=== PATIENT | female | born 1980 | race Caucasian/White ===

== ENCOUNTER 2023-04-22 10:16 | Outpatient (OUT) | payer MEDICAID, SELFPAY ==
--- NOTE | 2023-04-22 10:45 | US_ITS ---
The [address] [address] Patient Name: CARLITOS SILVA MRN: [id number] date: 1980 Sex: F Assigned Patient Location: [facility] Current Patient Location: [facility] Accession/Order Number: [id number] Exam Date: 04/22/2023 10:47 Report Date: 04/22/2023 12:01 At the request of: JUANCARLOS THAKUR Procedure: US OB transvaginal EXAMINATION: US OB transvaginal HISTORY: MISSED MENSES COMPARISON: No relevant comparison available. FINDINGS: GESTATIONAL SAC: Present and normal appearing. YOLK SAC: Absent. POLE: Present and normal appearing. CARDIAC: Present. UTERUS: Contains a 2.1 x 1.8 x 1.7 cm structure within the posterior wall with peripheral hyperechogenicity; nonspecific but suspected to represent a rim calcified leiomyoma. OVARIES: Right: Normal. Left: Not seen. CERVIX: 5.4 cm in length and closed. CUL-DE-SAC: Normal. OTHER: None. AGE BY LMP: 13 weeks 0 days MARQUISE BY LMP: 10/28/2023 AGE BY US CRL: 14 weeks 1 day MARQUISE BY US CRL: 10/20/2023 US/US OB transvaginal IMPRESSION: 1. Single live intrauterine . 2. Suspect rim calcified leiomyoma within posterior uterine wall, but nonspecific. Recommend evaluation of this area on follow-up examinations. Electronically authenticated by: KELSEY FALCON Date: 04/22/2023 12:01
== END 2023-04-22 10:17 | disposition home or self-care (01) ==
LOC: NOMS 10:40
PROVIDERS: Visit Provider Obstetrics & Gynecology
DX: Z34.92 Encounter for supervision of normal pregnancy, unspecified, second trimester (principal); Z3A.14 14 weeks gestation of pregnancy; N92.6 Irregular menstruation, unspecified
CPT/HCPCS: 76817

== ENCOUNTER 2023-04-27 10:19 | Outpatient (OUT) | payer MEDICAID, SELFPAY ==
[2023-04-27 11:18] LABS: Basophils Percent Auto 0.3 % (0.2-2.0); Eosinophils Percent Auto 0.5 % (0.9-7.0); Hematocrit 33.4 % (36.0-48.0); Hemoglobin 10.7 g/dL (12.0-16.0); Immature Granulocytes Abs Auto 0.03 10^3/uL (0.00-0.03); Immature Granulocytes Pct Auto 0.5 % (0.0-0.5); Lymphocytes Absolute Auto 0.9 10^3/uL (1.2-3.8); Lymphocytes Percent Auto 14.2 % (20.5-60.0); Mean Corpuscular Hemoglobin 26.1 pg (26.7-34.0); Mean Corpuscular Volume 81.5 fL (81.0-99.0); Mean Platelet Volume 10.9 fL (9.5-13.5); Monocytes Absolute Auto 0.4 10^3/uL (0.3-0.8); Monocytes Percent Auto 5.7 % (1.7-12.0); Neutrophils Absolute Auto 5.2 10^3/uL (1.4-6.5); Neutrophils Percent Auto 78.8 % (43.0-75.0); Platelet Count 164 10^3/uL (150-450); Red Cell Distribution Width 17.5 % (11.0-15.0); White Blood Count 6.6 10^3/uL (4.0-11.0)
[2023-04-27 11:24] LABS: BOX Test Sent Out Y
[2023-04-27 13:04] LABS: Estimated Average Glucose 94 mg/dL; Glycohemoglobin A1C 4.9 % (4.5-6.2)
[2023-04-28 06:10] LABS: HBsAg Screen Negative (Negative); HCV Ab Non Reactive (Non Reactive); HIV Ab/p24 Ag Screen Non Reactive (Non Reactive)
[2023-04-28 07:09] LABS: Rubella Antibodies, IgG 8.39 index (Immune >0.99)
[2023-04-28 12:11] LABS: Rapid Plasma Reagin, Quant Non Reactive titer (NonRea<1:1)
== END 2023-04-27 10:20 | disposition home or self-care (01) ==
LOC: LAB 10:28
PROVIDERS: Visit Provider Obstetrics & Gynecology
DX: N92.6 Irregular menstruation, unspecified (principal); Z36.0 Encounter for antenatal screening for chromosomal anomalies
CPT/HCPCS: 36415; 83036; 85025; 86592; 86762; 86803; 86850; 86900; 86901; 87086; 87340; 87389

== ENCOUNTER 2023-06-01 20:08 | Outpatient (REF) | payer MEDICAID, SELFPAY ==
[2023-06-07 11:09] LABS: Age Gdln ACOG Testing Note (.); HPV Aptima Negative (Negative); IGP, Aptima HPV, rfx 16/18,45 Note (.)
== END 2023-06-01 20:09 | disposition home or self-care (01) ==
LOC: LAB 20:08
PROVIDERS: Visit Provider Obstetrics & Gynecology
DX: Z01.419 Encounter for gynecological examination (general) (routine) without abnormal findings (principal)
CPT/HCPCS: 87624; G0145

== ENCOUNTER 2023-06-02 16:44 | Outpatient (OUT) | payer MEDICAID, SELFPAY ==
--- NOTE | 2023-06-02 16:50 | US_ITS ---
[address] [address] Patient Name: CARLITOS SILVA MRN: [id number] date: 1980 Sex: F Assigned Patient Location: US Current Patient Location: Accession/Order Number: [id number] Exam Date: 06/02/2023 17:15 Report Date: 06/03/2023 07:44 At the request of: JUANCARLOS THAKUR Procedure: US OB anatomy EXAMINATION: US OB anatomy HISTORY: Screening, , for anatomic survey Z36.89 COMPARISON: No relevant comparison available. TECHNIQUE: Transabdominal sonographic examination was performed for obstetrical and evaluation. FINDINGS: Number: 1 Heart Rate: 140.6 bpm H.B. /min Amniotic Fluid Volume: Subjectively normal Placental Location: Posterior-fundal; lower margin 8.6 cm from os. Cervix Length: 3.7 cm, closed. ANATOMY: Normal Structures -cerebellum, choroid plexus, cisterna magna, lateral cerebral ventricles, orbits, midline falx, hard palate, four-chamber heart, RVOT, LVOT, stomach, kidneys, bladder, umbilical cord insertion into abdomen, three-vessel cord, cervical spine, thoracic spine, lumbar spine, sacral spine, right upper extremity, left upper extremity, right lower extremity, left lower extremity. SUBOPTIMALLY SEEN: None ABNORMALITIES: 2 mm cyst within cord plexus. BIOMETRY: BPD: 4.4 cm 19 weeks 1 days ; 17% HC: 16.5 cm 19 weeks 1 days; 11% AC: 13.5 cm 19 weeks 0 days; 14% FL: 3.1 cm 19 weeks 3 days ; 23% EFW:277.9 grams; 10% FL/AC: 22.7 FL/BPD: 70.1 HC/AC: 1.2 GESTATIONAL AGE: Age by EDC: 20 weeks 0 days MARQUISE by EDC: 10/20/2023 Age by current US: 19 weeks 1 days MARQUISE by current US: 10/26/2023 US/US OB anatomy IMPRESSION: 1. Single live intrauterine with growth detailed above. 2. Estimated weight is at 10th percentile. 3. 2 mm cyst within choroid plexus. Electronically authenticated by: KELSEY FALCON Date: 06/03/2023 07:44
== END 2023-06-02 16:45 | disposition home or self-care (01) ==
LOC: US 16:45
PROVIDERS: Visit Provider Obstetrics & Gynecology
DX: Z36.89 Encounter for other specified antenatal screening (principal)
CPT/HCPCS: 76805

== ENCOUNTER 2023-06-05 08:59 | Emergency (ER) | payer MEDICAID, SELFPAY ==
[2023-06-05 09:01] VITALS: BP 118/74; PULSE 70; TEMP 36.8; O2SAT 98; BMI 25.0
--- NOTE | 2023-06-05 09:18 | ED_ITS ---
HPI - Dental/Oral General Chief complaint: Dental/Oral Stated complaint: TOOTH PAIN Time Seen by Provider: 06/05/23 09:08 Source: patient Mode of arrival: walk-in Limitations: no limitations History of Present Illness HPI Narrative: 43-year-old female presents for dental pain. It is developed over the past few days. 2 years ago she had a root canal in that same tooth and she is currently , 20 weeks. No difficulty breathing or swallowing. The pain is moderate and continuous. Related Data Previous Rx's ?Medication ?Instructions ?Recorded penicillin V potassium 250 mg 250 mg PO QID 10 days #40 tabs 06/05/23 tablet Allergies Allergy/AdvReac Type Severity Reaction Status Date / Time No Known Drug Allergies Allergy Verified 06/05/23 09:05 Review of Systems ROS Narrative A ten point review of systems is negative except as noted above. Exam Narrative Exam Narrative: Nurses note and vital signs reviewed and patient is not hypoxic. General: The patient appears well and in no apparent distress. Patient is resting comfortably on cart. Skin: Warm, dry, no pallor noted. There is no rash noted. Head: Normocephalic, atraumatic Eye: Normal conjunctiva, no drainage Ears, Nose, Mouth, and Throat: oral mucosa is moist. Nares patent. Mild swelling to the right upper jaw area. She is handling her oral secretions well. Dental caries is noted in the right upper dentition. No bleeding or pus present. Cardiovascular: Regular Rate and Rhythm Respiratory: Patient is in no distress, no accessory muscle use, lungs are clear to auscultation, no wheezing, rales or rhonchi Back: non-tender GI: Soft and nontender Musculoskeletal: The patient has no evidence of calf tenderness, no pitting edema, symmetrical pulses noted bilaterally Neurological: A&O, normal speech Psychiatric: Cooperative Constitutional Vital Signs, click to edit/add: Last Vital Signs Temp 98.3 F 06/05/23 09:01 Pulse 70 06/05/23 09:01 Resp 18 06/05/23 09:01 BP 118/74 06/05/23 09:01 Pulse Ox 98 06/05/23 09:01 Course Vital Signs Vital signs: Vital Signs Temperature 98.3 F 06/05/23 09:01 Pulse Rate 70 06/05/23 09:01 Respiratory Rate 18 06/05/23 09:01 Blood Pressure 118/74 06/05/23 09:01 Pulse Oximetry 98 06/05/23 09:01 Temperature 98.3 F 06/05/23 09:01 Pulse Rate 70 06/05/23 09:01 Respiratory Rate 18 06/05/23 09:01 Blood Pressure 118/74 06/05/23 09:01 Pulse Oximetry 98 06/05/23 09:01 MDM - Dental/Oral MDM Narrative Medical decision making narrative: She was given IM Ancef and prescribed penicillin and she will coordinate between her commercial collections driver and dentist regarding further care. Treatment diagnosis and follow-up were discussed with the patient. Differential Diagnosis Differential diagnosis: Likely gingival abscess, dental caries, toothache and dental abscess Discharge Plan Discharge Stand Alone Forms: Portal Instructions Chief Complaint: Dental/Oral Clinical Impression: Dental infection Patient Disposition: Home, Self-Care Time of Disposition Decision: 09:16 Condition: Good Mode of Transportation: Private Vehicle Prescriptions / Home Meds: New penicillin V potassium 250 mg tablet 250 mg PO QID 10 Days Qty: 40 0RF Print Language: Swedish Instructions: Dental Abscess (ED) Additional Instructions: Follow-up with your dentist and commercial collections driver Referrals: Physician,Non-Staff, MD [Primary Care Provider] - 1 week
[2023-06-05] MEDS: CEFAZOLIN SODIUM 1,000 MG, WATER FOR INJECTION,STERILE 2.5 ML IM (09:42)
[2023-06-05 09:54] VITALS: BP 106/59; PULSE 87; O2SAT 99
== END 2023-06-05 09:58 | disposition home or self-care (01) ==
PROVIDERS: Emergency Provider Emergency Medicine
DX: O99.612 Diseases of the digestive system complicating pregnancy, second trimester (principal); K04.7 Periapical abscess without sinus; Z3A.20 20 weeks gestation of pregnancy
CPT/HCPCS: 96372; 99284

== ENCOUNTER 2023-06-29 10:20 | Outpatient (OUT) | payer MEDICAID, SELFPAY ==
[2023-06-29 12:03] LABS: Basophils Percent Auto 0.3 % (0.2-2.0); Eosinophils Absolute Auto 0.1 10^3/uL (0.0-0.7); Eosinophils Percent Auto 0.9 % (0.9-7.0); Hematocrit 32.8 % (36.0-48.0); Hemoglobin 10.8 g/dL (12.0-16.0); Immature Granulocytes Abs Auto 0.04 10^3/uL (0.00-0.03); Immature Granulocytes Pct Auto 0.5 % (0.0-0.5); Lymphocytes Percent Auto 13.2 % (20.5-60.0); Mean Corpuscular HGB Conc 32.9 g/dL (29.9-35.2); Mean Corpuscular Hemoglobin 29.2 pg (26.7-34.0); Mean Corpuscular Volume 88.6 fL (81.0-99.0); Mean Platelet Volume 11.3 fL (9.5-13.5); Monocytes Absolute Auto 0.6 10^3/uL (0.3-0.8); Monocytes Percent Auto 7.7 % (1.7-12.0); Neutrophils Absolute Auto 5.9 10^3/uL (1.4-6.5); Neutrophils Percent Auto 77.4 % (43.0-75.0); Platelet Count 143 10^3/uL (150-450); White Blood Count 7.6 10^3/uL (4.0-11.0)
[2023-06-29 12:07] LABS: Glucose 1 Hour 93 mg/dL (<130)
== END 2023-06-29 10:21 | disposition home or self-care (01) ==
LOC: LAB 10:21
PROVIDERS: Visit Provider Physician Assistant
DX: Z13.1 Encounter for screening for diabetes mellitus (principal)
CPT/HCPCS: 36415; 82950; 85025

== ENCOUNTER 2023-09-15 07:32 | Outpatient (RCR) | payer MEDICAID, SELFPAY ==
[2023-09-15 10:20] VITALS: BP 113/63; PULSE 107; TEMP 36.5; O2SAT 98
[2023-09-15] MEDS: RHO(D) IMMUNE GLOBULIN 1,500 UNIT SYRINGE 1500 UNIT IM (10:20)
--- NOTE | 2023-09-15 10:33 | PC.NURSE ---
1020: Pt. to [facility] amb. for Rhogam injection. Seated in recliner. Blood type verified. Denies allergies or adverse reaction from previous injections of Rhogam. Medicated with Rhophylac as ordered, see documentation. Pt. tolerated with minimal c/o discomfort. Trace bleeding to site, covered with bandaid. 1030: D/c'd amb. to home.
== END 2023-10-15 23:59 | disposition home or self-care (01) ==
LOC: INF 07:32
PROVIDERS: Visit Provider Physician Assistant
DX: O26.893 Other specified pregnancy related conditions, third trimester (principal); Z67.91 Unspecified blood type, Rh negative; Z3A.00 Weeks of gestation of pregnancy not specified
CPT/HCPCS: 36415; 86850; 86900; 86901; 96372; J2791

== ENCOUNTER 2023-09-22 18:42 | Outpatient (OUT) | payer MEDICAID, SELFPAY ==
--- NOTE | 2023-09-22 18:43 | US_ITS ---
[address] [address] Patient Name: CARLITOS SILVA MRN: [id number] date: 1980 Sex: F Assigned Patient Location: US Current Patient Location: Accession/Order Number: [id number] Exam Date: 09/22/2023 18:50 Report Date: 09/23/2023 06:36 At the request of: JUANCARLOS THAKUR Procedure: US OB growth EXAMINATION: US OB growth HISTORY: ANTEPARTUM MULTIGRAVIDA OF ADVANCED MATERNAL AGE O09.529 COMPARISON: Ultrasound OB anatomy 06/02/2023 FINDINGS: Heart Rate: 134.33 bpm Amniotic Fluid Volume: 16.5 cm; normal range Number: 1 Position: CEPHALIC BIOMETRY: BPD: 8.99 cm; 36 weeks 3 days; 69.60 % HC: 33.46 cm; 38 weeks 2 days; 74.80 % AC: 32.34 cm; 36 weeks 2 days; 67.60 % FL: 6.83 cm; 35 weeks 1 day; 22.40 % EFW: 2869.82 g; 56.30 % FL/AC: 21.12 FL/BPD: 75.96 HC/AC: 1.03 GESTATIONAL AGE: Age by EDC: 36 weeks 0 days MARQUISE by EDC: 2023-10-20 Age by US: 36 weeks 4 days MARQUISE by US: 2023-10-16 US/US OB growth IMPRESSION: 1. Single live intrauterine with growth detailed above. Electronically authenticated by: KELSEY FALCON Date: 09/23/2023 06:36
--- OUTSIDE RECORDS SUMMARY | 2023-09-22 18:44 | XMS_ITS | CCD ---
Author Organization [facility] CliniSysc Care Team Providers Care Commissioned Security Officer Name Role Phone PHYLLIS RUBIO Attending Unavailable DEE SANTORO Referring Unavailable JUANCARLOS THAKUR Referring Unavailable PHYLLIS RUBIO Attending Unavailable JUANCARLOS THAKUR Referring Unavailable Problems Problem Classification Problem Date Documented Da te Episodic/Chronic Administrative/social admission (1 source) Encounter for examination and observation for unspecified reason; Translations: [Encounter for examination and observation for unspecified reason] Onset: 07-27-2023 Episodic Other complications of (1 source) Supervision of high risk , unspecified, unspecified trimester; Translations: [Supervision of high risk , unspecified, unspecified trimester] Onset: 07-27-2023 Episodic Other complications of (1 source) Supervision of elderly multigravida, second trimester; Translations: [Supervision of elderly multigravida, second trimester] Onset: 07-27-2023 Episodic Other screening for suspected conditions (not mental disorders or infectious disease) (1 source) Encounter for other specified screening; Translations: [Encounter for other specified screening] Onset: 07-27-2023 Episodic Residual codes; unclassified (1 source) 27 weeks gestation of ; Translations: [27 weeks gestation of ] Onset: 07-27-2023 Episodic Unclassified (1 source) Maternal care for (suspected) central nervous system malformation or damage in fetus, choroid plexus cysts, not applicable or unspecified; Translations: [Maternal care for (suspected) central nervous system malformation or damage in fetus, choroid plexus cysts, not applicable or unspecified] Onset: 07-27-2023 Unclassified (1 source) AMA Onset: 07-27-2023 Encounters Encounter Date Encounter Type Care Provider Facility Start: 08-31-2023 End: 08-31-2023 ambulatory PHYLLIS RUBIO [facility] Start: 07-27-2023 End: 07-28-[address] [facility] pital Payers Date Payer Category Payer Medicaid [id number] 1980 Unknown [id number] 2.16.8 [id number] 1980 Unknown [id number] 2.16.8 [id number] 1980 Unknown [id number] 2.16.8 [id number] Summary Purpose Family History No Family History Records Found Advance Directives No Advanced Directives Records Found Additional Source Comments INFORMATION SOURCE (unrecogn ized section and content) DATE CREATED AUTHOR 09/04/2023 [facility] FOR RECORDS PERTAINING TO PATIENTS WHO ARE OR HAVE BEEN ENROLLED IN A CHEMICAL DEPENDENCY/SUBSTANCEABUSE PROGRAM, SOME INFORMATION MAY BE OMITTED. This clinical summary was aggregated from multiple sources. Caution should be exercised in using it in the provision of clinical care. This summary normalizes information from multiple sources, and as a consequence, information in this document may materially change the coding, format and clinical context of patient data. In addition, data may be omitted in some cases. CLINICAL DECISIONS SHOULD BE BASED ON THE PRIMARY CLINICAL RECORDS. [facility] [employer] provides no warranty or guarantee of the accuracy or completeness of information in this document.
== END 2023-09-22 18:43 | disposition home or self-care (01) ==
LOC: US 18:42
PROVIDERS: Visit Provider Obstetrics & Gynecology
DX: O09.529 Supervision of elderly multigravida, unspecified trimester (principal); Z3A.36 36 weeks gestation of pregnancy
CPT/HCPCS: 76816

== ENCOUNTER 2023-09-26 20:17 | Outpatient (REF) | payer MEDICAID, SELFPAY ==
--- OUTSIDE RECORDS SUMMARY | 2023-09-26 20:21 | XMS_ITS | CCD ---
Author Organization [facility] CliniSytx Care Team Providers Care Linux Kernel Developer Name Role Phone PHYLLIS RUBIO Attending Unavailable [...] Start: 07-27-2023 End: 07-28-2023 ambulatory HIND JOANNE [facility] pital Payers Date Payer Category Payer Medicaid [id number] 1980 Unknown [id number] 2.16.8 [id number] 1980 Unknown [id number] 2.16.8 [id number] 1980 Unknown [id number] 2.16.8 [id number] Summary Purpose Family History No Family History Records Found Advance Directives No Advanced Directives Records Found Additional Source Comments INFORMATION SOURCE (unrecogn ized section and content) DATE CREATED AUTHOR 09/04/2023 [facility] FOR RECORDS PERTAINING TO PATIENTS WHO [...] BE BASED ON THE PRIMARY CLINICAL RECORDS. [facility] [employer] provides no warranty or guarantee of the accuracy or completeness of information in this document.
== END 2023-09-26 20:18 | disposition home or self-care (01) ==
LOC: LAB 20:17
PROVIDERS: Visit Provider Obstetrics & Gynecology
DX: Z34.93 Encounter for supervision of normal pregnancy, unspecified, third trimester (principal)
CPT/HCPCS: 36415; 87081; 87150

== ENCOUNTER 2023-10-05 06:57 | Outpatient (OUT) | payer MEDICAID, SELFPAY ==
--- OUTSIDE RECORDS SUMMARY | 2023-10-05 07:00 | XMS_ITS | CCD ---
Author Organization [facility] CliniSymo Care Team Providers Care Cook Helper Preserves Name Role Phone PHYLLIS RUBIO Attending Unavailable [...] Start: 07-27-2023 End: 07-28-2023 ambulatory HIND JOANNE [facility] pital Payers Date Payer Category Payer Medicaid [id number] 1980 Unknown [id number] 2.16.8 [id number] 1980 Unknown [id number] 2.16.8 [id number] 1980 Unknown [id number] 2.16.8 [id number] Summary Purpose Family History No Family History Records Found Advance Directives No Advanced Directives Records Found Additional Source Comments INFORMATION SOURCE (unrecogn ized section and content) DATE CREATED AUTHOR 09/04/2023 [facility] FOR RECORDS PERTAINING TO PATIENTS WHO ARE [...] BE BASED ON THE PRIMARY CLINICAL RECORDS. [facility] [employer] provides no warranty or guarantee of the accuracy or completeness of information in this document.
[2023-10-05 16:55] VITALS: BP 102/56; PULSE 79
--- NOTE | 2023-10-05 17:35 | US_ITS ---
[address] [address] Patient Name: CARLITOS SILVA MRN: [id number] date: 1980 Sex: F Assigned Patient Location: US Current Patient Location: Accession/Order Number: [id number] Exam Date: 10/05/2023 17:40 Report Date: 10/06/2023 06:19 At the request of: JUANCARLOS THAKUR Procedure: US OB BPP w non-stress EXAMINATION: US OB BPP w non-stress HISTORY:ANTEPARTUM MULTIGRAVIDA OF ADVANCED MATERNAL AGE O09.529 COMPARISON: Ultrasound OB growth 09/22/2023 TECHNIQUE: Ultrasound biophysical profile was performed in the radiology department. BREATHING MOVEMENTS: 2 GROSS BODY MOVEMENTS: 2 TONE: 2 QUALITATIVE AMNIOTIC FLUID VOLUME: 2 PRESENTATION: CEPHALIC HEART RATE: 143.62 bpm AMNIOTIC FLUID VOLUME: 13.16 cm GESTATIONAL AGE: 37 weeks 6 days US/US OB BPP w non-stress IMPRESSION: Total biophysical profile score: 8 Electronically authenticated by: KELSEY FALCON Date: 10/06/2023 06:19
== END 2023-10-05 18:02 | disposition home or self-care (01) ==
LOC: US 06:57 → FBC 16:50
PROVIDERS: Visit Provider Obstetrics & Gynecology
DX: O09.529 Supervision of elderly multigravida, unspecified trimester (principal); Z3A.37 37 weeks gestation of pregnancy
CPT/HCPCS: 76818

== ENCOUNTER 2023-10-08 06:40 | Outpatient (OUT) | payer MEDICAID, SELFPAY ==
--- OUTSIDE RECORDS SUMMARY | 2023-10-08 06:43 | XMS_ITS | CCD ---
Author Organization [facility] CliniSyut Care Team Providers Care Business Intelligence Analyst Name Role Phone PHYLLIS RUBIO Attending Unavailable [...] Start: 07-27-2023 End: 07-28-2023 ambulatory HIND JOANNE [facility] pital Payers Date Payer Category Payer Medicaid [id number] 1980 Unknown [id number] 2.16.8 [id number] 1980 Unknown [id number] 2.16.8 [id number] 1980 Unknown [id number] 2.16.8 [id number] Summary Purpose Family History No Family History Records Found Advance Directives No Advanced Directives Records Found Additional Source Comments INFORMATION SOURCE (unrecogn ized section and content) DATE CREATED AUTHOR 09/04/2023 [facility] FOR RECORDS PERTAINING TO PATIENTS WHO [...] BE BASED ON THE PRIMARY CLINICAL RECORDS. [facility] [employer] provides no warranty or guarantee of the accuracy or completeness of information in this document.
[2023-10-08 11:55] VITALS: BP 116/74; PULSE 88
== END 2023-10-08 12:40 | disposition home or self-care (01) ==
LOC: FBCO 06:41 → FBC 11:48
PROVIDERS: Visit Provider Obstetrics & Gynecology
DX: O09.523 Supervision of elderly multigravida, third trimester (principal); Z3A.38 38 weeks gestation of pregnancy
CPT/HCPCS: 59025

== ENCOUNTER 2023-10-12 07:01 | Outpatient (OUT) | payer MEDICAID, SELFPAY ==
--- OUTSIDE RECORDS SUMMARY | 2023-10-12 07:03 | XMS_ITS | CCD ---
Author Organization [facility] CliniSyaz Care Team Providers Care Aluminum Polisher Name Role Phone PHYLLIS RUBIO Attending Unavailable [...] Start: 07-27-2023 End: 07-28-2023 ambulatory HIND JOANNE [facility] pital Payers Date Payer Category Payer Medicaid [id number] 1980 Unknown [id number] 2.16.8 [id number] 1980 Unknown [id number] 2.16.8 [id number] 1980 Unknown [id number] 2.16.8 [id number] Summary Purpose Family History No Family History Records Found Advance Directives No Advanced Directives Records Found Additional Source Comments INFORMATION SOURCE (unrecogn ized section and content) DATE CREATED AUTHOR 09/04/2023 [facility] FOR RECORDS PERTAINING TO PATIENTS WHO [...] BE BASED ON THE PRIMARY CLINICAL RECORDS. [facility] [employer] provides no warranty or guarantee of the accuracy or completeness of information in this document.
--- NOTE | 2023-10-12 16:53 | US_ITS ---
[address] [address] Patient Name: CARLITOS SILVA MRN: [id number] date: 1980 Sex: F Assigned Patient Location: [facility] Current Patient Location: Accession/Order Number: [id number] Exam Date: 10/12/2023 16:59 Report Date: 10/13/2023 07:16 At the request of: JUANCARLOS THAKUR Procedure: US OB BPP w non-stress EXAMINATION: US OB BPP w non-stress HISTORY: ANTEPARTUM MULTIGRAVIDA OF ADVANCED MATERNAL AGE O09.529 COMPARISON: No relevant comparison available. TECHNIQUE: Ultrasound biophysical profile was performed in the radiology department. non-reactive stress testing was performed by nursing staff in the birthing center. FINDINGS: BREATHING MOVEMENTS: 2 GROSS BODY MOVEMENTS: 2 TONE: 2 QUALITATIVE AMNIOTIC FLUID VOLUME: 2 PRESENTATION: CEPHALIC HEART RATE: 138.46 bpm AMNIOTIC FLUID VOLUME: 2.7 cm GESTATIONAL AGE: 38 weeks 6 days US/US OB BPP w non-stress IMPRESSION: Total biophysical profile score: 8 Electronically authenticated by: MELVA ZEPEDA Date: 10/13/2023 07:16
[2023-10-12 17:27] VITALS: BP 104/62; PULSE 80
== END 2023-10-12 17:50 | disposition home or self-care (01) ==
LOC: US 07:01 → FBC 16:48
PROVIDERS: Visit Provider Obstetrics & Gynecology
DX: O09.529 Supervision of elderly multigravida, unspecified trimester (principal); Z3A.38 38 weeks gestation of pregnancy
CPT/HCPCS: 76818

== ENCOUNTER 2023-10-14 23:19 | Observation (INO) | payer MEDICAID, SELFPAY ==
--- OUTSIDE RECORDS SUMMARY | 2023-10-14 23:23 | XMS_ITS | CCD ---
Author Organization [facility] CliniSyor Care Team Providers Care Therapist Physical Name Role Phone PHYLLIS RUBIO Attending Unavailable [...] Start: 07-27-2023 End: 07-28-2023 ambulatory HIND JOANNE [facility] pital Payers Date Payer Category Payer Medicaid [id number] 1980 Unknown [id number] 2.16.8 [id number] 1980 Unknown [id number] 2.16.8 [id number] 1980 Unknown [id number] 2.16.8 [id number] Summary Purpose Family History No Family History Records Found Advance Directives No Advanced Directives Records Found Additional Source Comments INFORMATION SOURCE (unrecogn ized section and content) DATE CREATED AUTHOR 09/04/2023 [facility] FOR RECORDS PERTAINING TO PATIENTS WHO ARE [...] BE BASED ON THE PRIMARY CLINICAL RECORDS. [facility] [employer] provides no warranty or guarantee of the accuracy or completeness of information in this document.
--- NOTE | 2023-10-15 00:14 | PC.NURSE ---
0014: Contraction comment: Pt reports she has not felt any contractions since here, once her abdomen felt tight but baby was moving, denies pain with tightness. TOCO shows one CTX at that time.
== END 2023-10-15 00:32 | disposition home or self-care (01) ==
LOC: FBC 23:20
PROVIDERS: Admitting Provider Obstetrics & Gynecology; Visit Provider Obstetrics & Gynecology
DX: O47.1 False labor at or after 37 completed weeks of gestation (principal); Z3A.38 38 weeks gestation of pregnancy
CPT/HCPCS: 59025; G0378; G0379

== ENCOUNTER 2023-10-19 07:08 | Outpatient (OUT) | payer MEDICAID, SELFPAY ==
--- OUTSIDE RECORDS SUMMARY | 2023-10-19 07:10 | XMS_ITS | CCD ---
Author Organization [facility] CliniSyva Care Team Providers Care Command And Control Specialist Name Role Phone PHYLLIS RUBIO Attending Unavailable [...] Start: 07-27-2023 End: 07-28-2023 ambulatory HIND JOANNE [facility] pital Payers Date Payer Category Payer Medicaid [id number] 1980 Unknown [id number] 2.16.8 [id number] 1980 Unknown [id number] 2.16.8 [id number] 1980 Unknown [id number] 2.16.8 [id number] Summary Purpose Family History No Family History Records Found Advance Directives No Advanced Directives Records Found Additional Source Comments INFORMATION SOURCE (unrecogn ized section and content) DATE CREATED AUTHOR 09/04/2023 [facility] FOR RECORDS PERTAINING TO PATIENTS WHO ARE [...] BE BASED ON THE PRIMARY CLINICAL RECORDS. [facility] [employer] provides no warranty or guarantee of the accuracy or completeness of information in this document.
--- NOTE | 2023-10-19 17:03 | US_ITS ---
[address] [address] Patient Name: CARLITOS SILVA MRN: [id number] date: 1980 Sex: F Assigned Patient Location: Current Patient Location: [facility] Accession/Order Number: [id number] Exam Date: 10/19/2023 17:40 Report Date: 10/20/2023 06:50 At the request of: JUANCARLOS THAKUR Procedure: US OB BPP w non-stress EXAMINATION: US OB BPP w non-stress HISTORY:ANTEPARTUM MULTIGRAVIDA OF ADVANCED MATERNAL AGE O09.529 COMPARISON: Ultrasound OB biophysical 10/12/2023 TECHNIQUE: Ultrasound biophysical profile was performed in the radiology department. BREATHING MOVEMENTS: 2 GROSS BODY MOVEMENTS: 2 TONE: 2 QUALITATIVE AMNIOTIC FLUID VOLUME: 2 PRESENTATION: CEPHALIC HEART RATE: 153.41 bpm AMNIOTIC FLUID VOLUME: 13.68 cm GESTATIONAL AGE: 39 weeks 6 days US/US OB BPP w non-stress IMPRESSION: Total biophysical profile score: 8 Electronically authenticated by: KELSEY FALCON Date: 10/20/2023 06:50
[2023-10-19 17:08] VITALS: BP 119/55; PULSE 78
== END 2023-10-19 18:00 | disposition home or self-care (01) ==
LOC: US 07:08 → FBC 16:59
PROVIDERS: Visit Provider Obstetrics & Gynecology
DX: O09.529 Supervision of elderly multigravida, unspecified trimester (principal); Z3A.39 39 weeks gestation of pregnancy
CPT/HCPCS: 76818

== ENCOUNTER 2023-10-21 15:34 | Observation (INO) | payer MEDICAID, SELFPAY ==
[2023-10-21 15:44] VITALS: TEMP 36
--- OUTSIDE RECORDS SUMMARY | 2023-10-21 15:48 | XMS_ITS | CCD ---
Author Organization [facility] CliniSyks Care Team Providers Care Squeegee Finisher Name Role Phone PHYLLIS RUBIO Attending Unavailable [...] Start: 07-27-2023 End: 07-28-2023 ambulatory HIND JOANNE [facility] pital Payers Date Payer Category Payer Medicaid [id number] 1980 Unknown [id number] 2.16.8 [id number] 1980 Unknown [id number] 2.16.8 [id number] 1980 Unknown [id number] 2.16.8 [id number] Summary Purpose Family History No Family History Records Found Advance Directives No Advanced Directives Records Found Additional Source Comments INFORMATION SOURCE (unrecogn ized section and content) DATE CREATED AUTHOR 09/04/2023 [facility] FOR RECORDS PERTAINING TO PATIENTS WHO [...] BE BASED ON THE PRIMARY CLINICAL RECORDS. [facility] [employer] provides no warranty or guarantee of the accuracy or completeness of information in this document.
[2023-10-21 16:15] LABS: Bilirubin Urine NEGATIVE (NEGATIVE); Blood Urine NEGATIVE (NEGATIVE); Clarity Urine CLEAR (CLEAR); Color Urine LT. YELLOW (YELLOW); Glucose Urine UA NEGATIVE (NEGATIVE); Ketones Urine NEGATIVE (NEGATIVE); Leukocyte Esterase Urine NEGATIVE (NEGATIVE); Nitrite Urine NEGATIVE (NEGATIVE); Protein Urine NEGATIVE (NEG/TRACE); Specific Gravity Urine 1.015 (1.005-1.025); Urobilinogen Urine 0.2 EU/dL (0.2-1.0)
[2023-10-21 16:17] LABS: Urine Microscopic Indicated NO
[2023-10-21 16:21] VITALS: BP 112/58; PULSE 74
[2023-10-21 16:22] LABS: Amnisure NEGATIVE (NEGATIVE); Internal Control Within Normal Limits
== END 2023-10-21 16:50 | disposition home or self-care (01) ==
PROVIDERS: Admitting Provider Obstetrics & Gynecology; Visit Provider Obstetrics & Gynecology
DX: Z03.71 Encounter for suspected problem with amniotic cavity and membrane ruled out (principal); Z3A.40 40 weeks gestation of pregnancy; Z91.81 History of falling
CPT/HCPCS: 59025; 81003; 84112; G0378; G0379

== ENCOUNTER 2023-10-22 11:37 | Outpatient (OUT) | payer MEDICAID, SELFPAY ==
--- OUTSIDE RECORDS SUMMARY | 2023-10-22 11:40 | XMS_ITS | CCD ---
Author Organization [facility] CliniSyar Care Team Providers Care Sound Technician Supervisor Name Role Phone PHYLLIS RUBIO Attending Unavailable [...] Start: 07-27-2023 End: 07-28-2023 ambulatory HIND JOANNE [facility] pital Payers Date Payer Category Payer Medicaid [id number] 1980 Unknown [id number] 2.16.8 [id number] 1980 Unknown [id number] 2.16.8 [id number] 1980 Unknown [id number] 2.16.8 [id number] Summary Purpose Family History No Family History Records Found Advance Directives No Advanced Directives Records Found Additional Source Comments INFORMATION SOURCE (unrecogn ized section and content) DATE CREATED AUTHOR 09/04/2023 [facility] FOR RECORDS PERTAINING TO PATIENTS WHO ARE [...] BE BASED ON THE PRIMARY CLINICAL RECORDS. [facility] [employer] provides no warranty or guarantee of the accuracy or completeness of information in this document.
[2023-10-22 12:16] VITALS: BP 107/61; PULSE 68
== END 2023-10-22 12:20 | disposition home or self-care (01) ==
LOC: FBCO 11:38 → FBC 11:46
PROVIDERS: Visit Provider Obstetrics & Gynecology
DX: O09.523 Supervision of elderly multigravida, third trimester (principal)
CPT/HCPCS: 59025

== ENCOUNTER 2023-10-26 05:28 | Inpatient (IN) | payer MEDICAID, SELFPAY ==
[2023-10-26] VITALS (35 sets, daily range): BP systolic 79–168; BP diastolic 40–69; PULSE 54–83; TEMP 35.6–36.9
--- OUTSIDE RECORDS SUMMARY | 2023-10-26 05:30 | XMS_ITS | CCD ---
Author Organization [facility] [employer] Care Team Providers Care Hole Filler Name Role Phone PHYLLIS RUBIO Attending Unavailable [...] Start: 07-27-2023 End: 07-28-2023 ambulatory HIND JOANNE [facility] pital Payers Date Payer Category Payer Medicaid [id number] 1980 Unknown [id number] 1980 Unknown [id number] 1980 Unknown [id number] Summary Purpose Family History No Family History Records Found Advance Directives No Advanced Directives Records Found Additional Source Comments INFORMATION SOURCE (unrecogn ized section and content) DATE CREATED AUTHOR 09/04/2023 [facility] FOR RECORDS PERTAINING TO PATIENTS WHO [...] BE BASED ON THE PRIMARY CLINICAL RECORDS. [facility] [employer] provides no warranty or guarantee of the accuracy or completeness of information in this document.
[2023-10-26] MEDS: 0.9 % SODIUM CHLORIDE 1,000 ML 125 ML IV (06:30)
[2023-10-26] MEDS: OXYTOCIN/0.9 % SODIUM CHLORIDE 10 UNITS/500 ML PLAST..BAG 6 UNIT IV (06:38)
[2023-10-26 06:43] LABS: Hematocrit 30.1 % (36.0-48.0); Hemoglobin 9.7 g/dL (12.0-16.0); Mean Corpuscular HGB Conc 32.2 g/dL (29.9-35.2); Mean Corpuscular Hemoglobin 26.7 pg (26.7-34.0); Mean Corpuscular Volume 82.9 fL (81.0-99.0); Mean Platelet Volume 12.2 fL (9.5-13.5); Platelet Count 129 10^3/uL (150-450); Red Blood Count 3.63 10^6/uL (4.20-5.40); Red Cell Distribution Width 15.3 % (11.0-15.0); White Blood Count 7.4 10^3/uL (4.0-11.0)
[2023-10-26 06:54] LABS: Amphetamine Screen Urine NEGATIVE (NEGATIVE); Barbiturates Screen Urine NEGATIVE (NEGATIVE); Benzodiazepines Screen Urine NEGATIVE (NEGATIVE); Buprenorphine Screen Urine NEGATIVE (NEGATIVE); Cannabinoid Screen Urine NEGATIVE (NEGATIVE); Cocaine Screen Urine NEGATIVE (NEGATIVE); Methadone Screen Urine NEGATIVE (NEGATIVE); Methamphetamines Screen Urine NEGATIVE (NEGATIVE); Opiate Screen Urine NEGATIVE (NEGATIVE); Oxycodone Screen Urine NEGATIVE (NEGATIVE); Phencyclidine Screen Urine NEGATIVE (NEGATIVE); Tricyclic Antidepressant Urine NEGATIVE (NEGATIVE)
[2023-10-26] MEDS: 0.9 % SODIUM CHLORIDE 1,000 ML 1000 ML IV (12:22)
[2023-10-26] MEDS: ROPIVACAINE HCL/PF 400 MG/200 ML PREMIX 6 MG EPIDURAL (12:47)
[2023-10-26] MEDS: OXYTOCIN/0.9 % SODIUM CHLORIDE 20 UNITS/1,000 ML PLAST..BAG 125 UNIT IV (14:03)
--- NOTE | 2023-10-26 14:06 | PM.OBPRCVD ---
Procedure Intrapartal events: None Induction method: per pitocin protocol Delivery augmentation: rupture of membranes and pitocin Delivery monitor: external FHT and external uterine Route of delivery: Episiotomy Description: none L&D Laceration Description: none Estimated blood loss (mL): 200 Anesthesia type: Local Disposition: PACU Delivery date: 10/26/23 Gender: male presentation: vertex Placental delivery description: Spontaneous cord description: 3 Vessels
[2023-10-26] MEDS: GLYCERIN/WITCH HAZEL PADS 1 PAD TOPICAL (15:55)
[2023-10-26] MEDS: IBUPROFEN 600 MG TABLET PO ×2 (15:55→23:00)
[2023-10-26] MEDS: ACETAMINOPHEN 325 MG TABLET 650 MG PO (18:10)
[2023-10-26] MEDS: BENZOCAINE/MENTHOL 85 GRAM SPRAY BOTTLE 1 APPLIC TOPICAL (18:10)
[2023-10-27 06:35] LABS: Basophils Percent Auto 0.1 % (0.2-2.0); Eosinophils Absolute Auto 0.1 10^3/uL (0.0-0.7); Eosinophils Percent Auto 0.6 % (0.9-7.0); Hematocrit 27.7 % (36.0-48.0); Hemoglobin 8.8 g/dL (12.0-16.0); Immature Granulocytes Abs Auto 0.06 10^3/uL (0.00-0.03); Immature Granulocytes Pct Auto 0.6 % (0.0-0.5); Lymphocytes Absolute Auto 1.2 10^3/uL (1.2-3.8); Lymphocytes Percent Auto 11.8 % (20.5-60.0); Mean Corpuscular HGB Conc 31.8 g/dL (29.9-35.2); Mean Corpuscular Hemoglobin 26.7 pg (26.7-34.0); Mean Corpuscular Volume 84.2 fL (81.0-99.0); Mean Platelet Volume 12.4 fL (9.5-13.5); Monocytes Absolute Auto 0.8 10^3/uL (0.3-0.8); Monocytes Percent Auto 7.9 % (1.7-12.0); Neutrophils Absolute Auto 8.1 10^3/uL (1.4-6.5); Platelet Count 121 10^3/uL (150-450); Red Blood Count 3.29 10^6/uL (4.20-5.40); Red Cell Distribution Width 15.4 % (11.0-15.0); White Blood Count 10.3 10^3/uL (4.0-11.0)
--- NOTE | 2023-10-27 07:38 | PM.OBPN ---
OB - PN: Subj Subjective Patient comments: no complaints and pain well controlled [place] status: doing well Exam Constitutional Vital Signs, click to edit/add: Last Vital Signs Temp 98.4 F 10/26/23 15:55 Pulse 83 10/26/23 23:09 Resp 16 10/26/23 15:55 BP 111/54 10/26/23 23:09 O2 Del Method Room Air 10/26/23 15:55 Documenting provider has reviewed patient's vital signs: yes Common normals: no apparent distress Respiratory Common normals: normal respiratory effort and clear to auscultation bilaterally Cardio Common normals: regular rate and regular rhythm GI Common normals: Normal to inspection, nondistended, normoactive bowel sounds present Extremity Common normals: no calf tenderness Results Labs Labs: Short CBC 10/27/23 Range/Units 06:27 WBC 10.3 (4.0-11.0) 10^3/uL Hgb 8.8 L (12.0-16.0) g/dL Hct 27.7 L (36.0-48.0) % Plt Count 121 L (150-450) 10^3/uL OB - PN: A/P Plan - Vaginal Delivery day: 1 Plan: routine care Time Spent with Patient Time: Total time spent is greater than 50% in coordination of care (as documented) at patient's floor/unit and/or counseling patient: Total time spent with greater than 50% in coordination of care (as documented) at patient's floor/unit and/or counseling patient: less than 15 minutes
[2023-10-27 08:10] VITALS: TEMP 36.8
[2023-10-27] MEDS: IBUPROFEN 600 MG TABLET PO ×3 (08:10→22:33)
[2023-10-27] MEDS: DOCUSATE SODIUM 100 MG CAPSULE PO ×2 (08:10→22:33)
[2023-10-27 08:12] VITALS: BP 109/55; PULSE 72
[2023-10-27 12:45] VITALS: TEMP 36.5
[2023-10-27 12:48] VITALS: BP 100/52; PULSE 70
[2023-10-27 23:22] VITALS: BP 113/53; PULSE 80
[2023-10-27 23:27] VITALS: BP 113/53; PULSE 80; TEMP 36.9
[2023-10-28] MEDS: IBUPROFEN 600 MG TABLET PO (06:42)
[2023-10-28 08:14] VITALS: BP 101/50; PULSE 67
[2023-10-28 08:15] VITALS: BP 101/50; PULSE 67; TEMP 36.7
[2023-10-28] MEDS: DOCUSATE SODIUM 100 MG CAPSULE PO (08:16)
--- NOTE | 2023-10-28 08:42 | P.OBPN_ITS ---
OB - PN: Subj Subjective Patient comments: no complaints and pain well controlled [place] status: doing well Exam Constitutional Vital Signs, click to edit/add: Last Vital Signs Temp 98.5 F 10/27/23 23:27 Pulse 67 10/28/23 08:14 Resp 16 10/27/23 23:27 BP 101/50 10/28/23 08:14 O2 Del Method Room Air 10/27/23 23:27 Documenting provider has reviewed patient's vital signs: yes Common normals: no apparent distress Respiratory Common normals: normal respiratory effort and clear to auscultation bilaterally Cardio Common normals: regular rate and regular rhythm GI Common normals: Normal to inspection, nondistended, normoactive bowel sounds present Extremity Common normals: no calf tenderness OB - PN: A/P Plan - Vaginal Delivery day: 2 Plan: routine care, discharge home and follow up 6 weeks Time Spent with Patient Time: Total time spent is greater than 50% in coordination of care (as documented) at patient's floor/unit and/or counseling patient: Total time spent with greater than 50% in coordination of care (as documented) at patient's floor/unit and/or counseling patient: less than 15 minutes
[2023-10-28] MEDS: RHO(D) IMMUNE GLOBULIN 1,500 UNIT SYRINGE 1500 UNIT IM (09:39)
== END 2023-10-28 13:45 | disposition home or self-care (01) | DRG 560 ==
PROVIDERS: Admitting Provider Obstetrics & Gynecology; Visit Provider Obstetrics & Gynecology
DX: O26.893 Other specified pregnancy related conditions, third trimester (principal); Z67.21 Type B blood, Rh negative; Z87.891 Personal history of nicotine dependence; Z3A.40 40 weeks gestation of pregnancy; Z37.0 Single live birth
CPT/HCPCS: 36415; 59050; 59410; 80307; 85025; 85027; 85461; 86850; 86900; 86901; 96365; 96366; 96372; J2791; J2795